=== PATIENT | female | born 1990 | race Caucasian/White ===

== ENCOUNTER 2022-02-10 11:59 | Inpatient (IN) | payer MEDICAID, SELFPAY ==
[2022-02-10] VITALS (12 sets, daily range): BP systolic 107–132; BP diastolic 54–86; PULSE 66–89; RESP 10–18; TEMP 36.2–37; O2SAT 94–99; BMI 22.3
--- NOTE | 2022-02-10 12:45 | DI.CT_ITS ---
Exam(s) CT NECK W EXAM: CT NECK W CLINICAL HISTORY: Kncoriyige-dpeprbh-DK drug use. TECHNIQUE: Imaging Protocol: Axial CT angiography was performed with multi-slice acquisition and mu lti-planar and/or 3D reconstructions. CONTRAST MATERIAL: Intravenous: Visi Paque 320 contrast volume:100 mL COMPARISON: No exams were available for comparison FINDINGS: Visualized paranasal sinuses: Clear. Nasopharynx: Mild tissue hypertrophy. Oropharynx: No obvious findings. Retropharyngeal space: No prominent swelling. Hypopharynx: Vallecula and aryepiglottic folds unremarkable. Vocal cords and subglottic airway: Unremarkable. Thyroid gland: Unremarkable. Salivary glands: No distinct focal findings in the parotid and submandibular glands. No calculi. OTHER: There is a large peripherally enhancing abscess in the lower anterior r neck, slightly right o f midline and anterior to the thyroid gland. This measures approximately 5 cm wide by 3 cm AP by 4.5 cm craniocaudal. This involves strap muscles. Extends towards but does not appear to involve the t hyroid gland. Appears to possibly involve the medial aspect of the ipsilateral right sternocleidomas toid muscle. Lymph nodes: No gross lymphadenopathy evident. Osseous: No lesions. No osteomyelitis. Visualized lung apices: Unremarkable. IMPRESSION: 1. There is a large abscess in the anterior lower right neck as described above measuring approximate ly 5 x 4.5 by 3 cm, involving the strap muscles and probably also involving the medial aspect of the right sternocleidomastoid muscle. The subjacent thyroid gland exhibits homogeneous enhancement. Report called by myself to ER provider. RADIATION DOSE DELIVERED: 392.87mGy.cm Total DLP DATA REPOSITORY: All CT scans at this facility are submitted to the National Radiology Data Registry (NRDR) Dose Index Registry (DIR) with the [employer] (A[employer]). RADIATION OPTIMIZATION: All CT scans at this facility use at least one of these dose optimization te chniques: automated exposure control; mA and/or kV adjustment per patient size (includes targeted exa ms where dose is matched to clinical indication); or iterative reconstruction.
--- NOTE | 2022-02-10 13:05 | ED.GENADUL_ITS ---
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 Patient was seen in [facility] ER 3 days, I&D of the right leg, placed on Bactrim. Has been taking Bactrim as directed. Now with neck pain, swelling over the past 24 hours. No respiratory compromise. Patient is able to speak without difficulty. Reports mild discomfort when swallowing. Clinically she appears nontoxic. Plan is to obtain IV access, routine screening laboratory values, and will obtain CT imaging with IV contrast given my concern for deep neck structure involvement, this was discussed with our radiologist to gave permission to use IV contrast as we are experiencing a shortage. Laboratory values reveal a white blood cell count of 12.73, COVID-negative CT reveals a large abscess into the anterior lower right neck approximately 5 x 4.5 x 3 cm. Case discussed with our surgical team, Dr. Miles. We will add on the blood cultures and initiate Zosyn therapy. She will personally evaluate the patient Dr. Miles to the ER to evaluate patient, please see her note, she is agreeable to admission. Patient understands, is agreeable to this plan, and has no additional questions or concerns upon admission This documentation was generated using [employer] system, please disregard any oddities of phrase or misspellings. Imaging Data Radiologic Study: Attestation: I personally reviewed and interpreted this imaging study as follows: Imaging: CT Scan Radiologist's impression: Exam(s) CT NECK W EXAM: CT NECK W CLINICAL HISTORY: Lvlzwsyxdb-xmaatal-FH drug use. TECHNIQUE: Imaging Protocol: Axial CT angiography was performed with multi- slice acquisition and multi-planar and/or 3D reconstructions. CONTRAST MATERIAL: Intravenous: Visi Paque 320 contrast volume:100 mL COMPARISON: No exams were available for comparison FINDINGS: Visualized paranasal sinuses: Clear. Nasopharynx: Mild tissue hypertrophy. Oropharynx: No obvious findings. Retropharyngeal space: No prominent swelling. Hypopharynx: Vallecula and aryepiglottic folds unremarkable. Vocal cords and subglottic airway: Unremarkable. Thyroid gland: Unremarkable. Salivary glands: No distinct focal findings in the parotid and submandibular glands. No calculi. OTHER: There is a large peripherally enhancing abscess in the lower anterior r neck, slightly right of midline and anterior to the thyroid gland. This measures approximately 5 cm wide by 3 cm AP by 4.5 cm craniocaudal. This involves strap muscles. Extends towards but does not appear to involve the thyroid gland. Appears to possibly involve the medial aspect of the ipsilateral right sternocleidomastoid muscle. Lymph nodes: No gross lymphadenopathy evident. Osseous: No lesions. No osteomyelitis. Visualized lung apices: Unremarkable. IMPRESSION: 1. There is a large abscess in the anterior lower right neck as described above measuring approximately 5 x 4.5 by 3 cm, involving the strap muscles and probably also involving the medial aspect of the right sternocleidomastoid mus marques. The subjacent thyroid gland exhibits homogeneous enhancement. Lab Data Lab results reviewed: Yes I reviewed the patient's lab results. Labs: 02/10/22 14:43 Blood Blood Culture - Pending 02/10/22 14:43 Blood Blood Culture - Pending Laboratory Tests Range/Units 02/10/22 02/10/22 02/10/22 13:00 13:00 13:00 WBC (4.4-10.8) 10^3/uL 12.73 H RBC (3.93-5.22) 10^6/uL 4.93 Hgb (11.2-15.7) g/dL 13.9 Hct (36.0-46.0) % 42.4 MCV (80-95) fL 86 MCH (27.0-33.0) pg 28.2 MCHC (32.0-36.0) % 32.8 RDW (11.7-14.6) % 13.0 Plt Count (130-400) 10^3/uL 383 MPV (8.0-11.0) fL 8.9 Immature Gran % 0.3 Neutrophils % 75.4 Lymphocytes % 15.2 Monocytes % 7.9 Eosinophils % 0.9 Basophils % 0.3 Nucleated RBC % (0.0-0.3) % 0.0 Absolute Neutrophils (1.2-6.7) 10^3/uL 9.60 H Absolute Lymphocytes (1.2-3.4) 10^3/uL 1.93 Absolute Monocytes (0.1-0.8) 10^3/uL 1.01 H Absolute Eosinophils (0.0-0.7) 10^3/uL 0.11 Absolute Basophils (0.0-0.2) 10^3/uL 0.04 PT (9.3-11.0) sec 10.7 INR (0.9-1.1) 1.1 Sodium (136-145) mmol/L 135 L Potassium (3.5-5.1) mmol/L 4.3 Chloride (98-107) mmol/L 98 Carbon Dioxide (21.0-32.0) mmol/L 30.6 Anion Gap (3-11) mmol/L 6.4 BUN (7-18) mg/dL 9 Creatinine (0.55-1.02) mg/dL 0.8 Estimated GFR/1.73 m2 (mL/min/1.73m2) >= 60.00 Glucose (74-106) mg/dL 93 Calcium (8.5-10.1) mg/dL 9.1 Total Bilirubin (0.2-1.0) mg/dL 0.4 AST (15-37) U/L 7 L ALT (14-59) U/L 14 Alkaline Phosphatase (46-116) U/L 113 Total Protein (6.4-8.2) g/dL 9.1 H Albumin (3.4-5.0) g/dL 3.6 COVID-19 Source SARS-CoV-2 (PCR) (Negative) Range/Units 02/10/22 13:00 WBC (4.4-10.8) 10^3/uL RBC (3.93-5.22) 10^6/uL Hgb (11.2-15.7) g/dL Hct (36.0-46.0) % MCV (80-95) fL MCH (27.0-33.0) pg MCHC (32.0-36.0) % RDW (11.7-14.6) % Plt Count (130-400) 10^3/uL MPV (8.0-11.0) fL Immature Gran % Neutrophils % Lymphocytes % Monocytes % Eosinophils % Basophils % Nucleated RBC % (0.0-0.3) % Absolute Neutrophils (1.2-6.7) 10^3/uL Absolute Lymphocytes (1.2-3.4) 10^3/uL Absolute Monocytes (0.1-0.8) 10^3/uL Absolute Eosinophils (0.0-0.7) 10^3/uL Absolute Basophils (0.0-0.2) 10^3/uL PT (9.3-11.0) sec INR (0.9-1.1) Sodium (136-145) mmol/L Potassium (3.5-5.1) mmol/L Chloride (98-107) mmol/L Carbon Dioxide (21.0-32.0) mmol/L Anion Gap (3-11) mmol/L BUN (7-18) mg/dL Creatinine (0.55-1.02) mg/dL Estimated GFR/1.73 m2 (mL/min/1.73m2) Glucose (74-106) mg/dL Calcium (8.5-10.1) mg/dL Total Bilirubin (0.2-1.0) mg/dL AST (15-37) U/L ALT (14-59) U/L Alkaline Phosphatase (46-116) U/L Total Protein (6.4-8.2) g/dL Albumin (3.4-5.0) g/dL COVID-19 Source Nasal/Nares SARS-CoV-2 (PCR) (Negative) Negative HPI General Mode of arrival: ambulatory . Date/Time Provider Initiated Documentation: 02/10/22 12:02 . Limitations to Documentation: no limitations . Information obtained by: patient and family . History of Present Illness 31 year old F presents to the emergency department with the chief complaint of Neck infection, described as moderate, with intensity rated at 7. Quality is described as aching, and is localized to the neck. Patient reports no radiation. Patient started experiencing this day(s) (1) and it has been constant. No relieving factors improve symptom(s), Movement worsens symptoms . Patient notes denies fever/chills. Patient did receive the following treatments prior to arrival, other (Bactrim) Related Data Home Medications Medication Instructions Recorded Confirmed buprenorphine 8 mg-naloxone 2 mg 2 tab sublingual DAILY 02/10/22 02/10/22 sublingual tablet etonogestrel 68 mg subdermal subdermal 02/10/22 implant (Nexplanon) sulfamethoxazole 800 2 tab PO DAILY 02/10/22 02/10/22 mg-trimethoprim 160 mg tablet (Bactrim DS) Allergies Allergy/AdvReac Type Severity Reaction Status Date / Time No Known Allergies Allergy Unverified 02/10/22 12:14 General Stated Complaint: Cellulitis OPHELIA: 2 Review of Systems Constitutional Constitutional: Denies fever(s) ENT Ears, Nose, Mouth, and Throat: Reports neck pain Cardiovascular Cardiovascular: Denies chest pain and Denies dyspnea Respiratory Respiratory: Denies cough and Denies dyspnea Gastrointestinal Gastrointestinal: Denies abdominal pain, Denies nausea and Denies vomiting Genitourinary Genitourinary: Denies dysuria Musculoskeletal Musculoskeletal: Denies back pain, Reports neck pain, Denies numbness and Denies tingling Integumentary/Breasts Skin/Breast: Reports erythema Neurologic Neurologic: Denies numbness and Denies tingling PFSH All Active Problems (Updated 02/10/22 @ 15:09 by TATA [place]) Abscess, neck (Acute) Social History Smoking/Tobacco Use Status: Current every day Tobacco Type: cigarettes Smoking risk assessment performed?: Yes Alcohol Intake: never Details: heroin and bassalt 3 weeks ago. Exam Const General: cooperative, comfortable and no acute distress Orientation: alert, awake and oriented x3 HENMT Head: normal to inspection, normocephalic and atraumatic Face and sinus: normal facial exam Mouth: moist mucous membranes Throat: posterior oropharynx normal Eyes General: appearance normal, both eyes and all related structures Conjunctivae: conjunctivae normal Neck Neck: no meningeal signs, trachea midline, supple, anterior neck swelling and tender Neck images: 1. Tenderness, swelling, warmth, erythema, induration. There is anterior- superior cervical lymphadenopathy. Skin is intact, there does appear to be the beginning of a pustule near the center line of the neck. Resp Effort & Inspection: normal respiratory effort and able to speak in complete sentences Auscultation: clear to auscultation bilaterally Cardio Rate: regular rate Rhythm: regular rhythm GI Palpation: soft and nontender Back/Spine/Pelvis Back: No back tenderness Skin General skin exam: erythema Neuro General: patient alert, patient awake, moves all extremities and no focal motor deficits Cognition: normal cognition Speech: speech normal Gait: normal gait Motor: muscle tone normal throughout Sensory Exam: no sensory deficits noted Extrem General: full ROM and capillary refill normal Other: Right lower extremity dressing, dressing removed, I&D site which appears well- healing, no discharge or erythema. Neuro, vascular, tendon intact. Psych Appearance: grossly normal Mental Status: mental status grossly normal Course Vital Signs Vital signs: Vital Signs Temperature 36.4 C L 02/10/22 12:09 Pulse 89 02/10/22 12:09 Respiratory Rate 16 02/10/22 12:09 Blood Pressure 132/77 02/10/22 12:09 Pulse Oximetry 99 02/10/22 12:09 Temperature 36.4 C L 02/10/22 12:09 Temperature Source Temporal Artery Scan 02/10/22 12:09 Pulse 89 02/10/22 12:09 Respiratory Rate 16 02/10/22 12:09 Respiratory Effort 02/10/22 12:09 Blood Pressure 132/77 02/10/22 12:09 Blood Pressure Position Sitting 02/10/22 12:09 Pulse Oximetry 99 02/10/22 12:09 Pain Level 8 02/10/22 12:09
[2022-02-10 13:06] LABS: Source Nasal/Nares
[2022-02-10 13:10] LABS: Abs Immature Grans 0.04 10^3/uL (0.0-0.06); Absolute Basophil Count 0.04 10^3/uL (0.0-0.2); Absolute Lymphocyte Count 1.93 10^3/uL (1.2-3.4); Basophils % 0.3; Eosinophils % 0.9; HCT 42.4 % (36.0-46.0); HGB 13.9 g/dL (11.2-15.7); Immature Grans % 0.3; Lymphocytes % 15.2; MCH 28.2 pg (27.0-33.0); MCHC 32.8 % (32.0-36.0); MCV 86 fL (80-95); MPV 8.9 fL (8.0-11.0); Monocytes % 7.9; Neutrophils % 75.4; Platelet Count 383 10^3/uL (130-400); RBC 4.93 10^6/uL (3.93-5.22); RDW-SD 39.8 fL; WBC 12.73 10^3/uL (4.4-10.8)
[2022-02-10 13:12] LABS: Absolute Eosinophil Count 0.11 10^3/uL (0.0-0.7); Absolute Monocyte Count 1.01 10^3/uL (0.1-0.8)
[2022-02-10 13:21] LABS: ALT 14 U/L (14-59); AST 7 U/L (15-37); Albumin 3.6 g/dL (3.4-5.0); Alkaline Phosphatase 113 U/L (46-116); Anion Gap 6.4 mmol/L (3-11); BUN 9 mg/dL (7-18); Bilirubin, Total 0.4 mg/dL (0.2-1.0); CO2 30.6 mmol/L (21.0-32.0); CREATININE 0.8 mg/dL (0.55-1.02); Calcium 9.1 mg/dL (8.5-10.1); Chloride 98 mmol/L (98-107); Glucose 93 mg/dL (74-106); INR 1.1 (0.9-1.1); Potassium 4.3 mmol/L (3.5-5.1); Prothrombin Time 10.7 sec (9.3-11.0); Sodium 135 mmol/L (136-145); Total Protein 9.1 g/dL (6.4-8.2)
[2022-02-10 13:58] LABS: COVID-19 PCR Negative (Negative)
--- NOTE | 2022-02-10 15:00 | ANES.PREOP_ITS ---
General Info Date of Service Date Performed: 02/10/22 Height: 5 ft 4 in Weight: 58.967 kg Body Mass Index (BMI): 22.3 Surgical Procedure: Operation Date: 02/10/22 15:10 Proposed Procedure Side Surgeon p I & D of Neck Becki Miles, DO Meds Allergies and Home Medications Allergies Allergy/AdvReac Type Severity Reaction Status Date / Time No Known Allergies Allergy Unverified 02/10/22 12:14 Home Medication Medication Instructions Recorded buprenorphine 8 mg-naloxone 2 mg 2 tab sublingual DAILY 02/10/22 sublingual tablet etonogestrel 68 mg subdermal subdermal 02/10/22 implant (Nexplanon) sulfamethoxazole 800 2 tab PO DAILY 02/10/22 mg-trimethoprim 160 mg tablet (Bactrim DS) Current Visit Medications: Current Medications Generic Name Dose Route Start Last Admin Trade Name Freq PRN Reason Stop Dose Admin Piperacillin Sod/Tazobactam 50 mls @ 100 mls/hr 02/10/22 14:43 Sod 3.375 gm/ Sodium Chloride IVPB 02/10/22 15:12 NOW ONE Protocol IV Miscellaneous Supplies 1 each 02/10/22 13:00 Iv Access IV DIRECTED [facility] Tobacco Smoking/Tobacco Use Status: Current every day Tobacco Type: cigarettes Alcohol Alcohol Intake: never Substance Use Details: heroin and bassalt 3 weeks ago. Vital Signs and Lab Results Vital Signs Most Recent Vital Signs in EMR: Most Recent Vital Signs Temp Pulse Resp BP Pulse Ox 37.0 C 72 17 128/86 99 02/10/22 14:32 02/10/22 14:32 02/10/22 14:32 02/10/22 14:32 02/10/22 14:32 Point of Care Results Point of Care Results: POC- Test(urine) Negative 02/10/22 15:43 Lab Results Result Diagrams: 02/10/22 13:00 02/10/22 13:00 Blood Type / Crossmatch: No Data to Display Complete Blood Count: White Blood Count 12.73 10^3/uL (4.4-10.8) H 02/10/22 13:00 Red Blood Count 4.93 10^6/uL (3.93-5.22) 02/10/22 13:00 Hemoglobin 13.9 g/dL (11.2-15.7) 02/10/22 13:00 Hematocrit 42.4 % (36.0-46.0) 02/10/22 13:00 Platelet Count 383 10^3/uL (130-400) 02/10/22 13:00 Complete Metabolic Panel: Sodium Level 135 mmol/L (136-145) L 02/10/22 13:00 Potassium Level 4.3 mmol/L (3.5-5.1) 02/10/22 13:00 Chloride Level 98 mmol/L (98-107) 02/10/22 13:00 Carbon Dioxide Level 30.6 mmol/L (21.0-32.0) 02/10/22 13:00 Blood Urea Nitrogen 9 mg/dL (7-18) 02/10/22 13:00 Creatinine 0.8 mg/dL (0.55-1.02) 02/10/22 13:00 Estimated GFR/1.73 m2 >= 60.00 (mL/min/1.73m2) 02/10/22 13:00 Calcium Level 9.1 mg/dL (8.5-10.1) 02/10/22 13:00 Albumin 3.6 g/dL (3.4-5.0) 02/10/22 13:00 Glucose Level 93 mg/dL (74-106) 02/10/22 13:00 Liver Function Panel: Alanine Aminotransferase (ALT/SGPT) 14 U/L (14-59) 02/10/22 13: 00 Aspartate Amino Transf (AST/SGOT) 7 U/L (15-37) L 02/10/22 13:0 0 Coagulation Panel: INR International Normalized Ratio 1.1 (0.9-1.1) 02/10/22 13:0 0 Prothrombin Time 10.7 sec (9.3-11.0) 02/10/22 13:00 Cardiac Panel: No Data to Display Arterial Blood Gas: No Data to Display Venous Blood Gas: No Data to Display Pancreas Panel: No Data to Display Thyroid Panel: No Data to Display Infectious Disease: Coronavirus (COVID-19)(PCR) Negative (Negative) 02/10/22 13:00 Coronavirus 2019 Source Nasal/Nares 02/10/22 13:00 Blood Cultures: No Data to Display Toxicology Panel: No Data to Display Panel: No Data to Display Anesthesia Assessment and Plan Anesthesia History Personal History: No History of Anesthesia Complications Family History: No Family History of Anesthesia Complications Exercise Tolerance Exercise Tolerance: Metabolic Equivalents>4 Pertinent Negatives Pertinent Negatives: No Symptoms of GERD, No Major Cardiovascular Symptoms or Complaints and No Major Pulmonary Symptoms or Complaints Cardiac & Pulmonary Exam Cardiac Exam: Normal S1/S2 Heart Sounds Pulmonary Exam: Clear Bilateral Breath Sounds Implantable Cardiac Device Does patient have a Pacemaker or an ICD?: No Airway Exam Known Difficult Airway: No Mallampati Class: 2 Mouth Opening: Normal (> 3cm) Thyromental Distance: Greater than 3 cm Neck Range of Motion: Full ROM and Limited ROM (Pain from abcess limiting movement) Neck Circumference: Normal Teeth Condition: Normal Dentition ASA Classification ASA Score: ASA 2 Emergency Case?: Yes NPO Status NPO Status: NPO Clears >2 hours, Solids >8 hours Status Status: Negative HCG Anesthesia Plan Resuscitation Status: Full Code Anesthesia Technique: General Anesthesia Airway Planned: Endotracheal Tube Monitors Used: Standard Monitors
[2022-02-10 15:30] LABS: Bilirubin Negative (Negative); Blood Negative (Negative); Clarity Clear (Clear); Glucose Negative (Negative); Ketones Negative (Negative); Leukocyte Esterase Negative (Negative); Nitrite Negative (Negative); Specific Gravity 1.015 (1.005-1.025); Urobilinogen 0.2 EU/dL (Up TO 0.2)
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
[2022-02-10] MEDS: PIPERACILLIN/TAZO 3.375 GM in Normal Saline 50 ML IVPB ×2 (16:05→21:51)
--- NOTE | 2022-02-10 16:10 | NUR.NOTE ---
Nursing Note: Delay in obtaining blood cultures due to difficult venous access - multiple attempts. Spoke w/ surgical team who advised to continue and start the abx.
--- NOTE | 2022-02-10 16:34 | W.PM.OP ---
Date of service: 02/10/22 Time of Service: 15:34 Operative Note Operative Note DATE OF PROCEDURE: 02/10/22 PRE-OP DIAGNOSIS: abscess neck adn RLE mid dotson POST-OP DIAGNOSIS: same PROCEDURE: I&D SURGEON: Becki Miles SUPERVISOR MOTORCYCLE REPAIR SHOP: Becki Foreman ANESTHESIA TYPE: Local By Surgeon and General LMA/ETT Refer to Anesthesia Record ESTIMATED BLOOD LOSS: 10 PATHOLOGY: other COMPLICATIONS: None Patient was transported to: PACU Patient's condition: stable Procedure Description: Patient presented to the ER today with a 4 cm right-sided neck abscess. CT shows that it is just superficial and does not involve any of the major arterial structures, thyroid, or trachea. She also has a small abscess mid dotson right lower extremity approximately 5 mm. Patient had this abscess I indeed and was started on Bactrim 5 days ago. She has subsequently woke up this a.m. with a large neck abscess. She has a history of IV drug abuse with heroin and bath salts. Patient is brought to the operating room suite for incision and drainage. Informed consent is obtained explaining risks and benefits of the procedure including but not limited to: Bleeding, infection, pneumonia, blood clots, possible damage to the vein or artery nerves trachea or thyroid. Chronic pain or numbness. Poor cosmesis. And complications from anesthesia, need for further debridement Anesthesia is administered per the department of anesthesia. Patient is prepped and draped in the usual sterile fashion using a ChloraPrep scrub solution. Timeout is performed. She did receive antibiotics in the ED. Ultrasound is used to visualize the abscess and identified the jugulars. 10 cc of 1% lidocaine with epi is used for local anesthetization a vertical midline incision is made over top of the abscess, and incorporating one of the old scars. About 40 cc of purulent material is evacuated. Cultures are taken. The wound is explored and all the pockets are broken up. The size is approximately 6 x 4 by 3 cm wound is sharply debrided with a curette. Is irrigated with a liter of saline. There is not any significant bleeding. It is packed with plain gauze. Sterile dressings are applied. Attention is then turned to the right lower extremity. It is anesthetized with 10 cc of 1% lidocaine. All of the necrotic tissue debrided with a curette. Size is about 2 x 2 cm of the pocket. This is packed with plain gauze. A dressing is applied. Patient tolerated procedure well without complication and transferred to recovery room in stable condition.
[2022-02-10] MEDS: VANCOMYCIN 1,000 MG in Normal Saline 250 ML 166.6666 MG IVPB (16:45)
[2022-02-10] MEDS: Lactated Ringers 1,000 ML 30 ML IV (17:12)
[2022-02-10] MEDS: Lidocaine 1% Multi-Dose W/EPI 1/100,000 50 ML VIAL (18:13)
[2022-02-10] MEDS: Lidocaine 1% Multi-Dose 50 ML VIAL (18:31)
--- NOTE | 2022-02-10 18:53 | W.ANESPOSTOP ---
Postoperative Evaluation Date, Time and Location Date Performed: 02/10/22 Time Performed: 18:54 Patient Location: PACU Vital Signs Most Recent Imported Vital Signs: Most Recent Vital Signs Temp Pulse Resp BP Pulse Ox 36.7 C 67 10 L 125/69 99 02/10/22 18:45 02/10/22 18:45 02/10/22 18:45 02/10/22 18:45 02/10/22 18:45 Pain Score Most Recent Pain Score: Most Recent Pain Score Pain Level 0 02/10/22 0300 Assessment Mental Status: Awake (Alert & Oriented to Patient Baseline) Airway and Respiratory Function: Patent airway with normal (patient baseline) respiratory exam Cardiovascular Function: Hemodynamically Stable Hydration Status: Adequately Hydrated Nausea & Vomiting: No Nausea or Vomiting Pain: Pt. Denies Any Pain Peripheral Nerve Block: Patient did not receive a nerve block
[2022-02-10] MEDS: Ketorolac 15 MG/ML VIAL IVP (21:50)
[2022-02-10] MEDS: Gabapentin 300 MG CAP PO (21:50)
[2022-02-10] MEDS: Normal Saline Flush 10 ML SYR IVP (21:51)
[2022-02-10] MEDS: ACETAMINOPHEN 1,000 MG/100 ML BTL 400 MG IVPB (21:51)
[2022-02-10] MEDS: Normal Saline 1,000 ML 120 ML IV (21:52)
[2022-02-11 03:31] VITALS: BP 107/66; PULSE 64; RESP 16; TEMP 35.8; O2SAT 97
[2022-02-11] MEDS: ACETAMINOPHEN 1,000 MG/100 ML BTL 400 MG IVPB ×3 (03:35→15:25)
[2022-02-11] MEDS: Normal Saline Flush 10 ML SYR IVP ×4 (03:36→20:33)
[2022-02-11] MEDS: PIPERACILLIN/TAZO 3.375 GM in Normal Saline 50 ML IVPB ×3 (03:36→16:12)
[2022-02-11] MEDS: Ketorolac 15 MG/ML VIAL IVP ×3 (03:36→18:19)
[2022-02-11] MEDS: VANCOMYCIN 1,000 MG in Normal Saline 250 ML 166.667 MG IVPB (04:37)
[2022-02-11 08:17] VITALS: BP 118/72; PULSE 63; RESP 14; TEMP 36.4; O2SAT 97
[2022-02-11] MEDS: Normal Saline 1,000 ML 120 ML IV (09:26)
--- NOTE | 2022-02-11 10:29 | PGE_ITS ---
Date of Service Date of service: 02/11/22 Time of Service: 09:29 Assessment and Plan Assessment and plan (1) Abscess, neck: Status: Acute Assessment and plan: Spontaneous neck abscess with good source control and drainage. Stable wound. No significant soft tissue compromise or infection persisting now that the cavity is drained. Nothing looks like it will need more debridement at this point. Plan: Cont IV Abx. Vanco trough per pharmacy protocol Once-daily packing changes. Okay to be done by wound care at this point. Will likely DC with packing and dressing changes daily. Heplock Reg Diet DVT prophylaxis Subjective Subjective Interval history since last seen: Only complaint is hunger. No significant pain. No fevers. Also thinks she is swollen all over. Exam Narrative Exam Narrative: Gen: Nontoxic and interactive and comfortable Neuro: AxOx3 Psych: appropriate mood and affect Neck: Dressing stained. Packing removed and changed. Wound hemostatic. Mid- line incision site: Tissue edges and deep appears viable. No significant drainage. No obvious cellulitis and the surrounding soft tissue is minimally indurated. RLE: below knee is a small cavity. No erythema or induration. Packing removed and replaced. Objective Last Vital Signs Temp 97.5 F L 02/11/22 08:17 Pulse 63 02/11/22 08:17 Resp 14 02/11/22 08:17 BP 118/72 02/11/22 08:17 Pulse Ox 97 02/11/22 08:17 Laboratory Results - last 24 hr 02/10/22 02/10/22 02/10/22 13:00 13:00 13:00 WBC 12.73 H RBC 4.93 Hgb 13.9 Hct 42.4 MCV 86 MCH 28.2 MCHC 32.8 RDW 13.0 Plt Count 383 MPV 8.9 Immature Gran % 0.3 Neutrophils % 75.4 Lymphocytes % 15.2 Monocytes % 7.9 Eosinophils % 0.9 Basophils % 0.3 Nucleated RBC % 0.0 Absolute Neutrophils 9.60 H Absolute Lymphocytes 1.93 Absolute Monocytes 1.01 H Absolute Eosinophils 0.11 Absolute Basophils 0.04 PT 10.7 INR 1.1 Sodium 135 L Potassium 4.3 Chloride 98 Carbon Dioxide 30.6 Anion Gap 6.4 BUN 9 Creatinine 0.8 Estimated GFR/1.73 m2 >= 60.00 Glucose 93 Calcium 9.1 Total Bilirubin 0.4 AST 7 L ALT 14 Alkaline Phosphatase 113 Total Protein 9.1 H Albumin 3.6 Urine Color Urine Clarity Urine pH Ur Specific [place] Urine Protein Urine Ketones Urine Blood Urine Nitrite Urine Bilirubin Urine Urobilinogen Ur Leukocyte Esterase Urine Glucose COVID-19 Source SARS-CoV-2 (PCR) 02/10/22 02/10/22 13:00 15:19 WBC RBC Hgb Hct MCV MCH MCHC RDW Plt Count MPV Immature Gran % Neutrophils % Lymphocytes % Monocytes % Eosinophils % Basophils % Nucleated RBC % Absolute Neutrophils Absolute Lymphocytes Absolute Monocytes Absolute Eosinophils Absolute Basophils PT INR Sodium Potassium Chloride Carbon Dioxide Anion Gap BUN Creatinine Estimated GFR/1.73 m2 Glucose Calcium Total Bilirubin AST ALT Alkaline Phosphatase Total Protein Albumin Urine Color Yellow Urine Clarity Clear Urine pH 7.0 Ur Specific [place] 1.015 Urine Protein Negative Urine Ketones Negative Urine Blood Negative Urine Nitrite Negative Urine Bilirubin Negative Urine Urobilinogen 0.2 Ur Leukocyte Esterase Negative Urine Glucose Negative COVID-19 Source Nasal/Nares SARS-CoV-2 (PCR) Negative Objective Narrative Objective Narrative: Gram pos cocci growing - no sensitivities back yet
[2022-02-11] MEDS: Heparin 5,000 UNITS/ML VIAL 5000 UNITS SC ×2 (11:32→20:33)
[2022-02-11] MEDS: VANCOMYCIN/WATER (PEG) 1 GM/200 ML BAG IVPB ×2 (12:17→20:34)
[2022-02-11 15:52] VITALS: BP 117/71; PULSE 65; RESP 16; TEMP 36.7; O2SAT 97
--- NOTE | 2022-02-11 18:58 | PDOC.CMIN ---
- If Service Date Differs Date of service: 02/11/22 Time of Service: 19:00 Care Management Initial Assess REASON FOR HOSPITALIZATION:: soft tissue abscess PAST MEDICAL HISTORY/PAST SURGICAL HISTORY:: All Active Problems. Buprenorphine dependence (Acute). Heroin abuse (Acute). Smoker unmotivated to quit (Acute). IV drug abuse (Acute). Abscess, neck (Acute) PREVIOUS FUNCTIONAL STATUS/SOCIAL/FAMILY SUPPORTS:: Krystin lives in [place] with her sister currently. She has two children who live in [facility]. She is independent at baseline. CURRENT FUNCTIONAL STATUS:: Flori was lying in bed when CM met with her. She stated that she is doing well, and is hoping to be discharged soon. She is currently receiving IV abx, and has daily dressing changes for her wound. CM discussed HH RN for wound care, which she is agreeable to. She stated that she is very happy with the care she is receiving at [facility]. CM will continue to follow. ADVANCE DIRECTIVES:: None on file. Has patient been provided with info about the portal/API?: Yes Did the patient sign up for the portal?: No CODE STATUS:: Full Code INSURANCE COVERAGE / FINANCIAL ISSUES:: [facility] CURRENT HOME/COMMUNITY SERVICES/EQUIPMENT:: None. PRIMARY CARE PHYSICIAN:: unknown. POTENTIAL DISCHARGE NEEDS:: Follow up PCP appointment with orthodontic band maker MD from ED, possible HH RN for wound care. PATIENT/FAMILY EDUCATION NEEDS:: Review discharge instructions and limitations, discussion of self care needs including ask me three. ANTICIPATED BARRIERS TO DISCHARGE:: None. TRANSPORTATION:: Via private vehicle with family/friends. PLAN:: Anticipate Krystin will return home when medically cleared. She will be driven home via private vehicle by family. She will follow up with her PCP and discharge plan of care. CM will continue to follow.
[2022-02-11] MEDS: Buprenorphine/Naloxone 8 mg/2 mg FILM 1 EACH SL (20:33)
[2022-02-11] MEDS: diphenhydrAMINE Elixir 25 MG/10 ML CUP 12.5 MG PO (22:32)
[2022-02-11] MEDS: Gabapentin 300 MG CAP PO (22:32)
[2022-02-11] MEDS: Hyaluronidase 150 UNITS VIAL IJ (23:15)
[2022-02-11 23:45] VITALS: BP 120/72; PULSE 62; RESP 16; TEMP 36.6; O2SAT 97
[2022-02-12] MEDS: Acetaminophen 500 MG TAB 1000 MG PO (00:06)
--- NOTE | 2022-02-12 00:39 | NUR.NOTE ---
Patient IV was hurting. Area was reassessed and no warmth or redness observed, however patient was being medicated with Vancomycin. IV was discontinued and warm compress applied. Multiple attempts were made for inserting a new IV same was unsuccessful. Surgeon automation tester was informed and advised same will be followed up tomorrow
[2022-02-12] MEDS: Heparin 5,000 UNITS/ML VIAL 5000 UNITS SC ×3 (06:15→20:53)
[2022-02-12 07:40] VITALS: BP 117/78; PULSE 61; RESP 14; TEMP 36.4; O2SAT 97
[2022-02-12] MEDS: Buprenorphine/Naloxone 8 mg/2 mg FILM 1 EACH SL ×2 (09:07→20:53)
--- NOTE | 2022-02-12 09:23 | W.PM.PROGNOT ---
Date of Service Date of service: 02/12/22 Time of Service: 09:45 Assessment and Plan Assessment and plan (1) Abscess, neck: Status: Acute Assessment and plan: 31 yo woman with MRSA neck abscess s/p I&D and RLE abscess s/p I&D. Doesn't need IV abx anymore and doesn't want anymore IV pain medication. She's HD stable and doing well. Packing changed. Wounds look viable. She is happy to do her own dressings/packing at home. PLAN: PO Abx No IV medications DC home tomorrow after ECHO. Woundcare herself: once-daily packing. Subjective Subjective Interval history since last seen: Patient lost IV access last night. Attempts to replace were unsuccessful. She refused having her blood drawn this morning. She has not had fevers. No significant pain. She is interested in going home if possible. She also wants to do her own packing changes. Cultures growing MRSA. Exam Narrative Exam Narrative: Gen: Non-toxic, comfortable and interactive Neuro: AxOx3 Psych: Good mood and affect. Excellent insight and understanding. Neck: No significant erythema. Not really tender. Changed packing. Purulent discharge. Helped patient pack wound herself in mirror. Tissue in the cavity is clean, viable. RLE: No erythema. Purulent discharge on packing. Nontender. Patient changed this packing herself with my direction. Objective Last Vital Signs Temp 97.5 F L 02/12/22 07:40 Pulse 61 02/12/22 07:40 Resp 14 02/12/22 07:40 BP 117/78 02/12/22 07:40 Pulse Ox 97 02/12/22 07:40 Laboratory Results - last 24 hr 02/12/22 11:00 Vancomycin Trough Cancelled
[2022-02-12] MEDS: Sulfameth/Trimeth DS TAB 1 TAB PO ×2 (13:33→23:52)
[2022-02-12 16:07] VITALS: BP 115/77; PULSE 72; RESP 16; TEMP 37; O2SAT 97
[2022-02-12] MEDS: diphenhydrAMINE Elixir 25 MG/10 ML CUP 12.5 MG PO (20:52)
[2022-02-12] MEDS: Gabapentin 300 MG CAP PO (21:56)
[2022-02-12 22:53] VITALS: BP 107/65; PULSE 71; RESP 16; TEMP 36.6; O2SAT 96
[2022-02-13] MEDS: Heparin 5,000 UNITS/ML VIAL 5000 UNITS SC (04:50)
--- NOTE | 2022-02-13 07:34 | DI.US_ITS ---
APPROVED REPORT EXAM: Comprehensive 2D, Doppler, and color-flow Echocardiogram Patient Location: In-Patient Room/Bed: 231 Fabricator Foam Rubber: Meche De Anda RDCS (AE) Indications: UVDA, smoker Other Information Study Quality: Adequate Conclusion Normal left ventricular wall thickness and chamber size. Estimated ejection fraction is 55 to 60%. Wall motion is normal Normal right ventricular size and systolic function Both atria are normal in size There is no structural or hemodynamically significant valvular disease Normal estimated right ventricular systolic pressure 21 mmHg Wall motion Left Ventricle The left ventricle is normal size. The left ventricular systolic function is normal. The left ventric ular ejection fraction is within the normal range. There is normal left ventricular wall thickness. T here is normal LV segmental wall motion. There is no ventricular septal defect visualized. LVEF is 57 %. Right Ventricle The right ventricle is normal size. The right ventricular systolic function is normal. The RVSP is 21 .8mmHg. Atria The left atrium size is normal. The right atrium size is normal. The interatrial septum is intact wit h no evidence for an atrial septal defect. Aortic Valve The aortic valve is normal in structure. Aortic valve is trileaflet. There is no aortic valvular sten osis. No aortic regurgitation is present. There is no aortic valvular vegetation. Mitral Valve The mitral valve is normal in structure. No evidence of mitral valve stenosis. Trace mitral regurgita tion. There is no evidence of mitral valve vegetations. Tricuspid Valve The tricuspid valve is normal in structure. There is no tricuspid valve stenosis. Trace tricuspid reg urgitation. There is no tricuspid valve vegetations. Pulmonic Valve The pulmonary valve is normal in structure. There is no pulmonic valvular stenosis. There is no pulmo teresa valvular regurgitation. There is no pulmonic valve vegetations. Great Vessels The aortic root is normal in size. Ascending aorta is not well visualized. Aortic arch is not visuali zed, patient has bandaged neck. IVC is normal in size and collapses >50% with inspiration. Pericardium There is no pericardial effusion. 2D Dimensions IVSD d PLAX 0.83 cm F: 0.6-1.0 LV Vol A2C d MOD 105.0 mL LVPW d PLAX 0.84 cm F: 0.6 - 1.0 LV Vol A4C d MOD 90.2 mL LVID d PLAX 4.57 cm F: 3.8 - 5.2 LA vol/ BSA A2C s A-L 22.8 mL/m2 LVDs 3.20 cm F: 2.2 - 3.5 LA vol/ BSA A4C s A-L 19.1 mL/m2 Ao Root d 2.68 cm F: 2.7 - 3.3 LA Vol/ BSA Biplane s A-L 22.0 mL/m2 RA Area A4C 11.01 cm2 LA Area A4C s MOD 12.97 cm2 RA Vol/ BSA A4C s A-L 14.7 mL/m2 LA Area A2C s MOD 13.43 cm2 LV EF Teichholz 55.9 % LV EF A4C MOD 57.6 % LVEF (White's) 56.98 % F: 54 - 74 LV EF A2C MOD 57.1 % LV Volume 81.17 mL F: 46 - 106 LV EF Biplane MOD 57.0 % LV Volume Index 49.19 mL/m2 F: 29 - 61 SV 57.66 mL LV Vol Biplane MOD 101.2 mL SV Index 34.84 mL/m2 FS 29.00 % M-Mode TAPSE 1.99 cm (M/F) >1.7 LV Diastology MV E' medial 0.109 (>0.07 m/s) E/A Ratio 1.7 LV E/e MED 6.10 (<14) MV E Vmax 0.67 (0.4-1.3 m/s) MV E' lateral 0.131 (>0.1 m/s) MV A Vmax 0.40 (0.4-1.3 m/s) LV E/e LAT 5.05 (<14) MV E/A Ratio 1.63 MV E/E' medial 6.15 MV E/E' lateral 5.09 Aortic Valve LVOT Area 2.90 cm2 AoV Area Vmax 2.52 cm2 LVOT Vmax 1.06 m/s AoV Area/ BSA (Vmax) 1.52 cm2/m2 LVOT Mean Kyaw. 0.70 m/s JESSICA Mean Ky[place]. 2.44 cm2 LVOT Peak Grad 4.5 mmHg JESSICA Mean Kyaw. Index 1.47 cm2/m2 LVOT Mean Grad 2.3 mmHg LVOT VTI 0.185 m LVOT Diam s 1.90 cm AoV Vmax 1.22 m/s Velocity Ratio 0.86 AoV Mean Kyaw. 0.84 m/s AoV Peak Grad 5.9 mmHg LVOT SV 53.59 mL AoV Mean Grad 3.2 mmHg AoV VTI 0.194 m AoV Area VTI 2.76 cm2 AoV Area/ BSA (VTI) 1.67 cm/m2 Mitral Valve MV DT 238 (160-240 msec) MV PHT 69 msec MV Area PHT 3.18 cm2 MV VTI 0.220 m MV Area VTI 2.43 (4.0-6.0 cm2) Pulmonary Valve PV Vmax 1.18 (0.5-1.5 m/s) RVOT Peak Gr. 4.53 mmHg PV Peak Grad 5.5 mmHg RVOT Mean Gr. 2.20 mmHg PV Mean Grad 3.0 mmHg RVOT VTI 0.194 m PV VTI 0.223 m RVOT Vmax 1.06 m/s Tricuspid Valve TR Peak Grad 18.8 mmHg TR Vmax 2.17 m/s RA Pressure 3.00 mmHg RVSP (TR) 21.8 mmHg
[2022-02-13] MEDS: Buprenorphine/Naloxone 8 mg/2 mg FILM 1 EACH SL (08:31)
[2022-02-13] MEDS: diphenhydrAMINE 25 MG CAP PO (08:32)
[2022-02-13 08:39] VITALS: BP 119/76; PULSE 68; RESP 18; TEMP 36.6; O2SAT 99
--- NOTE | 2022-02-13 08:58 | W.PM.PROGNOT ---
Date of Service Date of service: 02/13/22 Time of Service: 07:59 Assessment and Plan Assessment and plan (1) Abscess, neck: Status: Acute Assessment and plan: Wounds look well and continue to improve. Dressings will need to be changed prior to d/c today. Continue PO antibiotics Echo completed this morning. Patient denies having any pain. D/C home, will have her follow up with surgical office on for follow up. Patient wishes to continue with her care here and states she is able to get transportation. Subjective Subjective Interval history since last seen: Patient reports she is feeling well. She is independent with her dressing changes. Reports having some mild body itching and hives. Exam Const General: cooperative, healthy appearing and comfortable Orientation: alert and oriented x3 Resp Effort & Inspection: normal respiratory effort, no audible wheezes and no cough Skin Other: Anterior Neck- I&D site, packing in place. Mild induration around the site. No erythema or swelling. Right Medial lower leg- Mild localized erythema around I&D site along with induration. Packing in place. Objective Last Vital Signs Temp 36.6 C 02/13/22 08:39 Pulse 68 02/13/22 08:39 Resp 18 02/13/22 08:39 BP 119/76 02/13/22 08:39 Pulse Ox 99 02/13/22 08:39 Laboratory Results - last 24 hr 02/12/22 05:35 WBC Cancelled RBC Cancelled Hgb Cancelled Hct Cancelled MCV Cancelled MCH Cancelled MCHC Cancelled RDW Cancelled Plt Count Cancelled MPV Cancelled
--- NOTE | 2022-02-13 09:04 | W.PM.DS.N ---
Date of service: 02/13/22 Time of Service: 08:04 DS: Diagnosis Discharge Diagnosis (1) Abscess, neck: Status: Acute Discharge Plan Disposition Patient Disposition: HOME Condition: Stable Discharge Details Reason For Visit: Soft Tissue Abscess Admit Date/Time: 02/10/22 16:07 Admit Provider: Becki Miles Attending Provider: Becki Miles Primary Care Provider: Unknown,Unknown Hospital Course Hospital Course: 31 y/o female with a history of IVDA presented to the ER [facility] complaints of abscess located on her right lower leg and concern for another on her neck. She was taken to the OR for I&D of neck abscess and debridement of R LE I&D site. Patient was treated with IV antibiotics and was transitioned to PO antibiotics. Patient was instructed on how to perform her own dressing changes. She will continue her course of PO antibiotics and follow up with the surgical services. Follow up with Dr. Bar on 02/16 in the Surgical Services Office Home Meds and New Rx's Prescriptions: New sulfamethoxazole-trimethoprim [Bactrim DS] 800-160 mg tablet 1 tab PO BID 7 Days Qty: 14 0RF Continued sulfamethoxazole-trimethoprim [Bactrim DS] 800-160 mg Tablet 2 tab PO DAILY buprenorphine-naloxone 8-2 mg Tablet, Sublingual 1 tab SUBLINGUAL BID Nexplanon 68 mg Implant SUBDERMAL Discharge Instructions Additional Instructions: Continue with daily dressing changes. Change the packing once a day. You may change the external dressing once a day or as needed for drainage. You may take showers, remove your dressing prior to showering. Allow warm soapy to run over the area. Then re-apply packing/dressing. Discussed no swimming, soaking in bath tubs or hot tubs until the incision site is fully healed for this can significantly increase their risk of infection. Patient verbalized understanding of this. Stand Alone Forms: Nursing Discharge Form Referrals: Evy Delcid MD [ [facility] STAFF PHYSICIAN] - 02/17/22 11:00 am Activity:: Activity as Tolerated Equipment/Supplies:: No Equipment Needed Diet:: Normal Diet Discharge Orders Discharge Orders: Discharge Order (Routine); Ordered 02/13/22 Ordered By: Geeta Pena DS: Summary Time Spent with Patient providing and/or coordinating discharge services: Less than 30 minutes Status at Discharge Functional status at discharge: independent ambulation Overall status at discharge: patient is back to baseline Mental Status: mental status grossly normal Speech and Movement: speech and movement normal Mood: congruent mood Affect: normal affect Exam Const General: cooperative, healthy appearing and comfortable Orientation: alert and oriented x3 Resp Effort & Inspection: normal respiratory effort, no audible wheezes and no cough Psych Mental Status: mental status grossly normal Speech and Movement: speech and movement normal Mood: congruent mood Affect: normal affect DS: Data Vitals/I&O Vitals and I&O: Vital Signs Temperature 36.6 C 02/13/22 08:39 Temperature Source Tympanic 02/13/22 08:39 Pulse 68 02/13/22 08:39 Pulse Rhythm Regular 02/12/22 20:58 Respiratory Rate 18 02/13/22 08:39 Respiratory Effort Non-Labored 02/12/22 20:58 Respiratory Depth Normal 02/12/22 20:58 Respiratory Pattern Normal 02/12/22 20:58 Blood Pressure 119/76 02/13/22 08:39 Blood Pressure Position Sitting 02/10/22 12:09 Pulse Oximetry 99 02/13/22 08:39 Respiratory End-tidal CO2 28 02/10/22 18:45 Oxygen Delivery Method Room Air 02/13/22 08:39 Oxygen Flow Rate 0 02/13/22 08:39 Pain Level 0 02/12/22 22:53 Comment 02/10/22 21:58 Intake & Output 02/12/22 02/13/22 02/13/22 18:59 06:59 18:59 Intake Total 750 / 750 Output Total 100 / 100 Balance 650 / 650 Intake: IV 150 / 150 Oral 600 / 600 Output: Urine 100 / 100 Other: Urine Color Yellow Urine Appearance Clear Clear Comment pt voids independently Voiding Methods Toilet Toilet Data Completed and Pending Labs on day of discharge: Labs from last 24 hours 02/12/22 05:35 WBC Cancelled RBC Cancelled Hgb Cancelled Hct Cancelled MCV Cancelled MCH Cancelled MCHC Cancelled RDW Cancelled Plt Count Cancelled MPV Cancelled 02/10/22 17:57 Neck - Right Anaerobic Culture - Pending Preliminary micro results at discharge 02/10/22 17:57 Wound Culture - Preliminary Neck - Right Staph aureus, MRSA 02/10/22 17:28 Blood Culture - Preliminary Blood NO GROWTH 48 HOURS 02/10/22 17:26 Blood Culture - Preliminary Blood NO GROWTH 48 HOURS 02/10/22 17:57 Anaerobic Culture - Pending Neck - Right PFSH All Active Problems (Updated 02/10/22 @ 15:54 by Becki Miles DO) Buprenorphine dependence (Acute) Heroin abuse (Acute) Smoker unmotivated to quit (Acute) IV drug abuse (Acute) Abscess, neck (Acute) Social History Smoking/Tobacco Use Status: Current every day Tobacco Type: cigarettes Smoking risk assessment performed?: Yes Alcohol Intake: never Details: heroin and [place] 3 weeks ago.
--- NOTE | 2022-02-13 10:12 | PDOC.CMDIS ---
- If Service Date Differs Date of service: 02/13/22 Time of Service: 10:12 LACE Index Scoring Tool - Questions: Length of Stay (in days): 3 Acuity (Admit via E.D.?): Yes E.D. Visits: 1 - Answers: Total Score: 7 Risk of Readmission: Low Risk Care Management Discharge Reason for Hospitalization: soft tissue abscess Discharge Plan: Krystin will return home with new home health orders for daily dressing changes. She will be driven home via private vehicle by family and will follow up with her PCP, surgeon and discharge plan of care. Patient/Family Education Needs: Review discharge instructions and limitations, discussion of self care needs including ask me three.
== END 2022-02-13 09:34 | disposition home or self-care (01) | DRG 603 ==
LOC: ER 16:44 → MS 19:08
PROVIDERS: Admitting Provider Surgery; Emergency Provider Physician Assistant; Visit Provider Surgery
PROC: 0J940ZZ Drainage of Right Neck Subcutaneous Tissue and Fascia, Open Approach (ICD-10-PCS; CPT 10060; principal; 2022-02-10 15:00)
DX: L02.11 Cutaneous abscess of neck (principal); L02.415 Cutaneous abscess of right lower limb; F17.210 Nicotine dependence, cigarettes, uncomplicated; F11.10 Opioid abuse, uncomplicated; B95.62 Methicillin resistant Staphylococcus aureus infection as the cause of diseases classified elsewhere
CPT/HCPCS: 10060; 97597; 36415; 70491; 80053; 81025; 85027; 87040; 87077; 87635; 93306; 96365; 96367; 99285; 80202; 81003; 85025; 85610; 87070; 87075; 87186; 87205; 94667; J0131; J1644; J1885; J2405; J2543; J3470